=== PATIENT | male | born 1975 | race Caucasian/White ===

== ENCOUNTER 2017-11-16 08:00 | Day surgery (SDC) | payer OTHER ==
[~2017-11-16] VITALS: Ht 182.9 cm; Wt 102.1 kg
[~2017-11-16 08:00] MED LIST: FENOFIBRATE145 MG PO; LOSARTAN-HCTZ1 EACH PO
--- NOTE | 2017-11-16 11:12 | NUR ---
11/16/17 1112 Alecia Vital 1103-PATIENT ARRIVED TO PACU ON 6L MASK O2 SAT 100% PATIENT REACTIVE TO VOICE. RR EVEN. SR. LEFT ARM IN IMMOBILIZER DRESSING INTACT ICE APPLIED. GOOD WARMTH, PALPABLE PULSE AND CAP REFILL.
--- NOTE | 2017-11-16 12:07 | NUR ---
1150: PATIENT BACK IN DAY SURGERY ROOM FROM PACU. DENIES PAIN. DENIES NAUSEA. C/O NUMBNESS AND TINGLING IN LEFT FINGERS. ABLE TO MOVE LEFT FINGERS. LEFT ARM IN IMMOBILIZER. THREE DRESSINGS ON LEFT SHOULDER, ALL CLEAN, DRY, AND INTACT. IV SITE WNL. SCDs ON. ICE WATER PLACED AT BEDSIDE. AT BEDSIDE. CALL LIGHT WITHIN REACH. 1205: SANDWICH ORDERED FOR PATIENT PER REQUEST.
[2017-11-16] MEDS ORDERED: NORCO 10-325 T1 EACH PO (12:22)
[2017-11-16] MEDS ORDERED: ULTRAM50 MG PO (12:23)
[2017-11-16] MEDS ORDERED: ZOFRAN ODT4 MG PO (12:28)
--- NOTE | 2017-11-16 13:35 | NUR ---
1250: PATIENT TOLERATED SANDWICH. DENIES PAIN. VS CHECKED. PATIENT ASSISTED OOB AND TO GET DRESSED. STAND BY ASSIST TO BATHROOM. GAIT STEADY TO BATHROOM. VOID WITHOUT DIFFICULTY. GAIT STEADY BACK TO ROOM. 1315: DISCHARGE INSTRUCTIONS GIVEN TO PATIENT AND . IV DC'D WNL. 1322: PATIENT DISCHARGED TO HOME WITH VIA WHEELCHAIR.
--- NOTE | 2017-11-21 07:19 | OR ---
[facility] [address], [place] [address] Signed DATE OF OPERATION: 11/16/2017 SURGEON: Kyaw Rose MD PREOPERATIVE DIAGNOSIS: Anterior and inferior labral tear. POSTOPERATIVE DIAGNOSIS: Anterior and inferior labral tear. PROCEDURE: Left shoulder arthroscopy with labral repair. ANESTHESIA: General. SPECIMENS AND COMPLICATIONS: There were no specimens or complications. BLOOD LOSS: Minimal. WHAT WAS DONE: The patient was taken to the operating room. After anesthesia was induced and airway secured, the patient was positioned, prepped and draped in a routine sterile fashion. The bony topography was outlined with a skin marking pen. The arthroscope was inserted through the standard posterior portal. An anterior portal was created using a switching stick technique. Arthroscopy of the shoulder joint revealed a completely unremarkable humeral head and glenoid. The biceps tendon and the biceps anchor were unremarkable. The rotator cuff was completely unremarkable as well. Anteroinferiorly from about 7 o'clock up to about 9 o'clock, there was a labral tear. This was detached from the anterior aspect of the glenoid. We then made a 2nd anterior portal. We then introduced the VAPR electrosurgical device and used it to gently remove the soft tissue off the anterior aspect of the glenoid neck underneath the tear. We then introduced a 4-mm sulema and roughen up the bone in this area as well. We then placed a single labral tape through the labrum right in the mid portion of the tear. We then placed a spear and drilled a hole for a single PushLock. The PushLock was fed over the labral tape. PushLock was seated pulling the labrum back down to the bone. The shoulder was copiously irrigated. We then cut off the remaining fiber tape and delivered out of the wound. The wound was gently irrigated and all the portals were closed in a standard Electronically Signed By: KYAW ROSE MD 11/21/17 0719 PATIENT NAME: MICHAEL SALAZAR OPERATIVE REPORT DATE OF : 79 REPORT #: [id number] PHYSICIAN: KYAW ROSE MD PCP: JOHN HUSSEIN REPORT IS CONFIDENTIAL AND NOT TO BE RELEASED WITHOUT AUTHORIZATION [facility] [address], [place] [address] Signed fashion. Sterile dressings were applied. He was placed in an UltraSling, awakened, taken to the recovery room where he arrived in stable condition. Counts were correct and antibiotic protocols were followed. Kyaw Rose MD WFB/MODL /[id number] Copies: ~ Electronically Signed By: KYAW ROSE MD 11/21/17 0719 PATIENT NAME: MICHAEL SALAZAR OPERATIVE REPORT DATE OF : 79 REPORT #: [id number] PHYSICIAN: KYAW ROSE MD PCP: JOHN HUSSEIN REPORT IS CONFIDENTIAL AND NOT TO BE RELEASED WITHOUT AUTHORIZATION
== END 2017-11-16 13:22 | disposition home or self-care (01) ==
LOC: OPS 08:00 → DS 08:00 → OPS 09:30
PROVIDERS: Orthopaedic Surgery
PROC: 0MM24ZZ Reattachment of Left Shoulder Bursa and Ligament, Percutaneous Endoscopic Approach (ICD-10-PCS; principal; 2017-11-16 09:30)
DX: S43.492A Other sprain of left shoulder joint, initial encounter (principal); Z85.828 Personal history of other malignant neoplasm of skin; Z79.899 Other long term (current) drug therapy
CPT/HCPCS: 01630; 64415; 76942; C1713; J0690; J1100; J1885; J2250; J2405; J2704; J2765; J2795; J3010; J7120

== ENCOUNTER 2022-09-23 07:45 | Day surgery (SDC) | payer OTHER ==
[~2022-09-23] VITALS: Ht 182.9 cm; Wt 91.8 kg
[~2022-09-23 07:45] MED LIST changes: +ADDERALL XR 2525 MG PO; +CLARITIN10 M3 PO; +NORCO 10-325 T1 EACH PO; +SUDAFED 12 HOU120 MG PO; +ULTRAM50 MG PO; +ZOFRAN ODT4 MG PO
[2022-09-23 08:00] VITALS: BP 131/83
[2022-09-23] MEDS ORDERED: AMPHETAMINE SAL10 MG PO (08:03)
--- NOTE | 2022-09-23 09:36 | NUR ---
ICE PACK PLACED ON RT KNEE CMS IN TACT
[2022-09-23] MEDS ORDERED: CELECOXIB200 MG PO (12:32)
[2022-09-23] MEDS ORDERED: HYDROCODON-ACE1 EA10 PO (12:32)
--- NOTE | 2022-09-23 12:47 | NUR ---
09/23/22 1247 Sheets,Page 1211 PT ARRIVED TO PACU ASLEEP AND LARGE AMOUNT OF SNORING NOTED. RESP EVEN AND UNLABORED. 1217 PT WAKES TO TACTILE STIMULI AND DENIES PAIN AND NAUSEA. PT REORIENTED TO PACU AND EASILY FALLS BACK TO SLEEP. 1225 PT WAKES AND HOB INCREASED, PT SIPPING WATER AND DENEIS CONCERNS.
[2022-09-23 12:48] VITALS: BP 125/86
--- NOTE | 2022-09-26 07:03 | OR ---
[facility] [address], [place] [address] Signed DATE OF OPERATION: 09/23/2022 SURGEON: Price Cadet MD PREOPERATIVE DIAGNOSIS: Foreign body, right hand. POSTOPERATIVE DIAGNOSIS: Foreign body, right hand. PROCEDURE PERFORMED: Exploration of hand without locating foreign body. CARDIOLOGY NURSE PRACTITIONER: None. ANESTHESIA: Sedation with block. TOURNIQUET TIME: 22 minutes. BRIEF HISTORY: Michael is a 47-year-old gentleman, who got a large splinter in his hand. He was seen by his PCP who did an ultrasound showing a foreign body. It continued to bother him and he wished to have it removed. Risks, benefits, and alternatives were discussed at length. DESCRIPTION OF PROCEDURE: Once consent was obtained, he was taken to the operating room. After adequate anesthesia, hand table was brought in. A well-padded proximal arm tourniquet was placed and the arm was prepped and draped in a standard sterile fashion. The arm was exsanguinated using Esmarch bandage. Tourniquet was inflated to 200 mmHg. Prior to surgery, I did locate the entrance wound and traced out where he thought the foreign body was. We then prepped and draped the hand and as I said exsanguinated. The incision was made obliquely from the starting entrance wound obliquely across the volar aspect of the index MP joint. This was carried through the skin and subcutaneous tissue. This was taken directly down to the flexor tendon sheath. No foreign body was encountered. There was some significant scar along the radial aspect of the MP joint along the nerve. This was adherent to the nerve and I did not remove it. A trigger Electronically Signed By: PRICE CADET MD 09/26/22 0703 PATIENT NAME: MICHAEL SALAZAR OPERATIVE REPORT DATE OF : 79 REPORT #: [id number] PHYSICIAN: PRICE CADET MD PCP: JOHN CORNEJO PA-C REPORT IS CONFIDENTIAL AND NOT TO BE RELEASED WITHOUT AUTHORIZATION [facility] [address] [facility] [place] [address] Signed finger release was performed and the tendon sheath was opened up. The flexor tendon was examined and moved with no evidence of foreign body on top or underneath the flexor tendon itself. The exploration was then taken on both sides of the metacarpal down to neurovascular bundle and again no significant foreign bodies were noted. This was taken proximally and distally about a cm to a cm and a half. At this point, there was no significant foreign body located, so I elected to stop the procedure. It was copiously irrigated with normal saline and closed with 3-0 nylon. The wound was then dressed with bacitracin, Adaptic, 4 x 8s, and gauze. He tolerated the procedure well. All sponge, needle, and instrument counts were correct. Price Cadet MD BA/DOREEN /[id number] Copies: ~ Electronically Signed By: PRICE CADET MD 09/26/22 0703 PATIENT NAME: MICHAEL SALAZAR OPERATIVE REPORT DATE OF : 79 REPORT #: [id number] PHYSICIAN: PRICE CADET MD PCP: JOHN CORNEJO PA-C REPORT IS CONFIDENTIAL AND NOT TO BE RELEASED WITHOUT AUTHORIZATION
== END 2022-09-23 12:56 | disposition home or self-care (01) ==
LOC: OPS 07:45 → DS 07:47 → OPS 10:36
PROVIDERS: ATTEND Specialist
DX: M79.5 Residual foreign body in soft tissue (principal); W45.8XXA Other foreign body or object entering through skin, initial encounter; Z79.899 Other long term (current) drug therapy
CPT/HCPCS: 01810; 64454; 76942; J0690; J2001; J2250; J2704; J2795; J7121